=== PATIENT | female | born 1945 | race Caucasian/White ===

== ENCOUNTER 2016-05-03 09:48 | Outpatient (CLI) | payer OTHER ==
[~2016-05-03 09:48] MED LIST: ANASTROZOLE1 MG PO; DIPHENHYDRAMINE25 M1 PO; GABAPENTIN300 MG PO; GLIMEPIRIDE1 MG PO; METFORMIN HCL500 MG PO; PERCOCET1 TA1 PO; TRAZODONE HCL50 MG PO; ZYRTEC ALLERGY10 MG PO
--- NOTE | 2016-05-03 11:50 | DIAGNOSTIC IMAGING REPORT ---
PROCEDURE: CT THORAX WITH CONTRAST INDICATION: BREAST CA; LEFT RECURRENT LARYNGEAL CA TECHNIQUE: 100 ml of Isovue 300 was injected intravenously and axial images were obtained of the chest with coronal and sagittal reformations. COMPARISON: [facility] Chest x-ray 11/03/[address] chest 07/05/2015 FINDINGS: Interval removal of the large right breast mass with a 2.4 x 1.1 cm soft tissue density in the lateral aspect of the surgical bed which may represent scarring or possibly a mass. There is a left subclavian Port-A-Cath. There are no pulmonary nodules effusions, axillary, mediastinal or hilar adenopathy. Mild atherosclerosis of the thoracic aorta. Coronary atherosclerosis. Heart size is normal. Right thyroid lobe nodules. Visualized abdomen is unremarkable. Moderate degenerative changes of the spine. No suspicious osseous lesions. IMPRESSION: 1. Interval removal of large right breast mass. There is a 2.4 x 1.4 cm soft tissue density in the lateral aspect of the surgical bed, mass versus scarring. 2. Left subclavian Port-A-Cath
--- NOTE | 2016-05-03 11:50 | DIAGNOSTIC IMAGING REPORT ---
PROCEDURE: CT THORAX WITH CONTRAST INDICATION: BREAST CA; LEFT RECURRENT LARYNGEAL CA TECHNIQUE: 100 ml of Isovue 300 was injected intravenously and axial images were obtained of the chest with coronal and sagittal reformations. COMPARISON: [facility] Chest x-ray 11/03/[address] chest 07/05/2015 FINDINGS: Interval removal of the large right breast mass with a 2.4 x 1.1 cm soft tissue density in the lateral aspect of the surgical bed which may represent scarring or possibly a mass. There is a left subclavian Port-A-Cath. There are no pulmonary nodules effusions, axillary, mediastinal or hilar adenopathy. Mild atherosclerosis of the thoracic aorta. Coronary atherosclerosis. Heart size is normal. Right thyroid lobe nodules. Visualized abdomen is unremarkable. Moderate degenerative changes of the spine. No suspicious osseous lesions. IMPRESSION: 1. Interval removal of large right breast mass. There is a 2.4 x 1.4 cm soft tissue density in the lateral aspect of the surgical bed, mass versus scarring. 2. Left subclavian Port-A-Cath
== END 2016-05-03 23:00 ==
LOC: CT SRH 09:48
DX: C50.911 Malignant neoplasm of unspecified site of right female breast (principal); C32.9 Malignant neoplasm of larynx, unspecified; M54.5 Low back pain; Z95.828 Presence of other vascular implants and grafts